=== PATIENT | female | born 1945 | race Caucasian/White ===

== ENCOUNTER → 2017-04-21 | Outpatient (CLI) | payer OTHER ==
[~2017-04-21] MED LIST: ALPRAZOLAM; ASPIRIN PO; ATACAND PO; ATARAX; DIOVAN; PROZAC
--- NOTE | ~2017-04-21 | MY24 ---
[facility] A Service of [facility] RADIOLOGY TEXT RESULTS PATIENT: MELLISA HERNANDEZ LOCATION: [facility] : 43 UNIT #: [id number] AGE: [address]: Leonid Leon MD SEX: F ORDER DR: [id number] [facility] [address] [place], [place] [address] [id number] O MR#: [id number] Acc #: [id number] NAME: MELLISA HERNANDEZ : 1945 SEX: F STUDY DATE/TIME: 04/21/2017 13:56 UNIT: [facility] ROOM: STUDY DESCRIPTION: [facility] W/ CAD UNI Attending Physician: Leonid Leon M.D. Referring Physician: Leonid Leon M.D. Ordering Physician: Leonid Leon M.D. Primary Care Physician: Leonid Leon M.D. MEDICAL IMAGING REPORT This report is preliminary unless electronic signature is present EXAM Left digital diagnostic mammogram INDICATIONS Left breast cancer post lumpectomy. Left breast followup. PROCEDURE mL, MLO, true lateral and XCCL views of the left breast obtained on a digital mammography unit. FDA-approved CAD device utilized. COMPARISON STUDIES 11/20/2016 FINDINGS Post lobectomy change upper outer quadrant left breast is unchanged. There is no new dominant mass or suspicious calcification. Scattered fibroglandular density. IMPRESSION Benign left diagnostic mammogram. Patients over the age of 40 are entered into a reminder system with target due date for the next mammogram. A result letter will also be sent to the patient. BIRADS: 2 - Benign finding Dictated by... Jhon Julian M.D. THIS IS AN ELECTRONICALLY VERIFIED REPORT Jhon Julian M.D. at 06/05/2017 7:00 AM [email or web address] [facility] A Service [facility] RADIOLOGY TEXT RESULTS PATIENT: MELLISA HERNANDEZ LOCATION: [facility] : 43 UNIT #: [id number] AGE: [address]: Leonid Leon MD SEX: F ORDER DR: TD: 04/21/2017 18:53 JOB #: [id number] MEDICAL IMAGING REPORT Page 1 of 1 COPY
--- NOTE | ~2017-04-21 | MY24 ---
[facility] A Service of [facility] RADIOLOGY TEXT RESULTS PATIENT: MELLISA HERNANDEZ [facility] #: [id number] : 43 UNIT #: [id number] AGE: [address]: Leonid Leon MD SEX: F ORDER DR: [id number] [place], [place] [address] [id number] O MR#: [id number] Acc #: [id number] NAME: MELLISA HERNANDEZ : 1945 SEX: F STUDY DATE/TIME: 04/21/2017 13:56 UNIT: [facility] ROOM: STUDY DESCRIPTION: [facility] DIA W/ CAD UNI Attending Physician: Leonid Leon M.D. Referring Physician: Leonid Leon M.D. Ordering Physician: Leonid Leon M.D. Primary Care Physician: Leonid Leon M.D. MEDICAL IMAGING REPORT This report is preliminary unless electronic signature is present REVISED REPORT EXAM Left digital diagnostic mammogram INDICATIONS Left breast cancer post lumpectomy. Left breast followup. PROCEDURE mL, MLO, true lateral and XCCL views of the left breast obtained on a digital mammography unit. FDA-approved CAD device utilized. COMPARISON STUDIES 11/20/2016 FINDINGS Post lobectomy change upper outer quadrant left breast is unchanged. There is no new dominant mass or suspicious calcification. Scattered fibroglandular density. IMPRESSION Benign left diagnostic mammogram. Patients over the age of 40 are entered into a reminder system with target due date for the next mammogram. A result letter will also be sent to the patient. BIRADS: 2 - Benign finding *ACCESSION# MODIFED. [facility] A Service of [facility] RADIOLOGY TEXT RESULTS PATIENT: MELLISA HERNANDEZ [facility] #: [id number] : 43 UNIT #: [id number] AGE: [address]: Leonid Leon MD SEX: F ORDER DR: Dictated by... Jhon Julian M.D. THIS IS AN ELECTRONICALLY VERIFIED REPORT Jhon Julian M.D. at 06/12/2017 7:09 AM Romain TD: 04/21/2017 18:53 JOB #: [id number] MEDICAL IMAGING REPORT Page 1 of 1 COPY
== END | disposition home or self-care (01) ==
LOC: CMAM 13:18
DX: C50.912 Malignant neoplasm of unspecified site of left female breast (principal)
CPT/HCPCS: G0206